=== PATIENT | female | born 1995 | race Hispanic/Latino ===

== ENCOUNTER 2017-12-26 08:24 | Emergency (ER) | payer SELFPAY ==
[2017-12-26] MEDS ORDERED: DIPHENHYDRAMINE HCL 25 MG CAPSULE ONE (09:34)
[2017-12-26] MEDS ORDERED: ERYTHROMYCIN BASE 0.5% OPHTH OINT 1 GM TUBE ONE (09:34)
[2017-12-26] MEDS ORDERED: TETANUS/DIPHTHERIA TOXOID [ADULT] 0.5 ML VIAL IM ONE (09:35)
== END 2017-12-26 09:49 | disposition home or self-care (01) ==
LOC: EDH 08:24
DX: H10.531 Contact blepharoconjunctivitis, right eye (principal)
CPT/HCPCS: 90471; 90714; 99283; Q0163